=== PATIENT | female | born 1960 | race Caucasian/White ===

== ENCOUNTER → 2020-07-03 | Outpatient (CLI) | payer OTHER ==
[~2020-07-03] MED LIST: FLEXERIL 10 MG10 MG PO; NAPROSYN500 MG PO
== END ==
LOC: KOH-I 06-30 10:15 → US 09:30
DX: R10.13 Epigastric pain (principal); K76.0 Fatty (change of) liver, not elsewhere classified; Z90.49 Acquired absence of other specified parts of digestive tract
CPT/HCPCS: 76705

== ENCOUNTER 2021-03-25 10:16 | Emergency (ER) | payer OTHER ==
[2021-03-25 11:18] LABS: HEMOGLOBIN 12.8 gm/dl (12.3-15.3); RED BLOOD COUNT 4.06 M/UL (4.00-5.10); WHITE BLOOD COUNT 6.4 K/UL (4.5-11.0)
[2021-03-25 11:52] LABS: BUN/CREATININE RATIO 12 (0-10)
[2021-03-25] MEDS ORDERED: CATAPRES 0.1MG0.1 MG PO (16:00)
== END 2021-03-25 16:15 | disposition left against medical advice (07) ==
LOC: ER1 10:16
DX: R07.89 Other chest pain (principal); M54.12 Radiculopathy, cervical region; I10 Essential (primary) hypertension; I25.10 Atherosclerotic heart disease of native coronary artery without angina pectoris; I11.9 Hypertensive heart disease without heart failure; E78.5 Hyperlipidemia, unspecified; Z95.5 Presence of coronary angioplasty implant and graft; Z86.73 Personal history of transient ischemic attack (TIA), and cerebral infarction without residual deficits; Z88.1 Allergy status to other antibiotic agents; Z88.5 Allergy status to narcotic agent; Z88.8 Allergy status to other drugs, medicaments and biological substances
CPT/HCPCS: 71045; 80053; 81001; 82550; 82553; 83874; 84484; 85025; 87086; 93005; 96374; 99285; J1885; J7030

== ENCOUNTER 2021-07-15 09:25 | Observation (INO) | payer OTHER ==
[~2021-07-15] VITALS: Ht 170.2 cm; Wt 82.6 kg
[~2021-07-15 09:25] MED LIST changes: +CATAPRES 0.1MG0.1 MG PO
[2021-07-15 10:02] LABS: HEMOGLOBIN 12.8 gm/dl (12.3-15.3); RED BLOOD COUNT 4.13 M/UL (4.00-5.10); WHITE BLOOD COUNT 7.6 K/UL (4.5-11.0)
[2021-07-15 10:58] LABS: BUN/CREATININE RATIO 13 (0-10)
[2021-07-15] MEDS ORDERED: LOSARTAN-HCTZ1 EAC2 PO (15:40)
[2021-07-15] MEDS ORDERED: LINZESS72 MCG PO (15:40)
[2021-07-15] MEDS ORDERED: FAMOTIDINE20 MG PO (15:40)
[2021-07-15] MEDS ORDERED: ALPRAZOLAM0.25 MG PO (15:41)
[2021-07-15] MEDS ORDERED: BISOPROLOL FUMA10 MG PO (15:41)
[2021-07-15] MEDS ORDERED: LEVOCETIRIZINE D5 MG PO (15:42)
[2021-07-15] MEDS ORDERED: PROTONIX 40 MG40 M1 PO (15:42)
[2021-07-15] MEDS ORDERED: TIROSINT88 MCG PO (15:42)
[2021-07-15] MEDS ORDERED: PROAIR HFA8.5 GM INH (15:42)
[2021-07-15] MEDS ORDERED: FLONASE 0.05% N16 GM (15:42)
[2021-07-15] MEDS ORDERED: ASPIRIN EC81 MG PO (15:43)
[2021-07-15] MEDS ORDERED: NITROGLYCERIN0.4 MG SL (15:43)
[2021-07-16] MEDS ORDERED: CRESTOR 10 MG T10 MG PO (09:03)
== END 2021-07-16 13:30 | disposition home or self-care (01) ==
LOC: ER1 09:25 → CDU 13:34 → M/S 13:34
PROVIDERS: Emergency Medicine; ADMIT Internal Medicine
DX: I25.110 Atherosclerotic heart disease of native coronary artery with unstable angina pectoris (principal); I10 Essential (primary) hypertension; C81.90 Hodgkin lymphoma, unspecified, unspecified site; K21.9 Gastro-esophageal reflux disease without esophagitis; K58.9 Irritable bowel syndrome, unspecified; R94.31 Abnormal electrocardiogram [ECG] [EKG]; E03.9 Hypothyroidism, unspecified; E78.5 Hyperlipidemia, unspecified; K44.9 Diaphragmatic hernia without obstruction or gangrene; Z88.1 Allergy status to other antibiotic agents; Z88.0 Allergy status to penicillin; Z95.5 Presence of coronary angioplasty implant and graft; Z20.822 Contact with and (suspected) exposure to COVID-19; Z90.49 Acquired absence of other specified parts of digestive tract; Z88.5 Allergy status to narcotic agent
CPT/HCPCS: 36415; 71045; 80053; 80061; 82550; 82553; 82962; 84439; 84443; 84484; 85025; 93005; 96374; 99285; G0378; J2405; U0002